=== PATIENT | female | born 1975 | race African-American/Black ===

== ENCOUNTER 2020-11-14 19:07 | Emergency (ER) | payer SELFPAY ==
[~2020-11-14] VITALS: Ht 157.5 cm; Wt 109.0 kg
[2020-11-14 20:41] VITALS: BP 131/75
[2020-11-14] MEDS ORDERED: CETI10CA2 MT (21:08)
[2020-11-14] MEDS ORDERED: DIPHENHYDRAMINE 25MG CAPSULE PO ONE (21:15)
[2020-11-14] MEDS ORDERED: CETIRIZINE 10MG TABLET PO SCH (21:15)
== END 2020-11-14 21:56 | disposition home or self-care (01) ==
LOC: ER 19:07
DX: J30.9 Allergic rhinitis, unspecified (principal)
CPT/HCPCS: 99283; Q0163

== ENCOUNTER 2021-05-24 21:34 | Emergency (ER) | payer MEDICAID, OTHER ==
[~2021-05-24] VITALS: Ht 160 cm; Wt 118.5 kg
[~2021-05-24 21:34] MED LIST: CETI10CA2 MT
[2021-05-24 23:44] LABS: CHLORIDE 106 mEq/L (98-107)
[2021-05-24 23:47] LABS: BASOPHILS % 0.4 % (0.0-2.0); EOSINOPHILS % 1.1 % (0.0-5.0); HEMATOCRIT. 35.5 % (36.0-48.0); LYMPHOCYTES % 14.6 % (20.0-50.0); MEAN CORPUSCULAR HEMOGLOBIN 27.8 pg (28.0-32.0); MEAN CORPUSCULAR VOLUME 81.9 fL (81.0-99.0); MEAN PLATELET VOLUME 8.2 fl (7.4-10.4); MONOCYTES % 7.4 % (2.0-8.0); NEUTROPHILS % 76.5 % (40.0-76.0); PLATELET 330 x1000/uL (130-400); RED BLOOD CELL COUNT 4.33 mill/uL (4.2-5.4)
[2021-05-25 02:49] LABS: CLARITY URINE CLEAR (CLEAR); COLOR URINE YELLOW (YELLOW); KETONES URINE NEGATIVE (NEGATIVE); LEUKOCYTE ESTERASE URINE NEGATIVE (NEGATIVE); NITRITE URINE NEGATIVE (NEGATIVE); OCCULT BLOOD URINE 1+ (NEGATIVE); PROTEIN URINE NEGATIVE (NEGATIVE); SPECIFIC GRAVITY URINE 1.008 (1.005-1.030)
[2021-05-25] MEDS ORDERED: KETOROLAC 15MG/ML VIAL IV ONE (05:15)
[2021-05-25] MEDS ORDERED: AMOX-494 MT (05:18)
[2021-05-25 05:20] VITALS: BP 116/60
== END 2021-05-25 05:50 | disposition home or self-care (01) ==
LOC: ER 21:34
DX: J18.9 Pneumonia, unspecified organism (principal); Z20.822 Contact with and (suspected) exposure to COVID-19
CPT/HCPCS: 36415; 71045; 71275; 80048; 81003; 81025; 83605; 84484; 85025; 85379; 87426; 93005; 96374; 99285; J1885

== ENCOUNTER 2021-06-08 13:03 | Emergency (ER) | payer MEDICAID, OTHER ==
[~2021-06-08] VITALS: Ht 162.6 cm; Wt 113.0 kg
[~2021-06-08 13:03] MED LIST changes: +AMOX-494 MT
[2021-06-08] MEDS ORDERED: ALBU6.7H9 INH (14:17)
[2021-06-08 14:30] VITALS: BP 126/75
== END 2021-06-08 14:48 | disposition home or self-care (01) ==
LOC: ER 13:03
DX: R05.3 Chronic cough (principal); Z87.01 Personal history of pneumonia (recurrent); Z20.822 Contact with and (suspected) exposure to COVID-19; Z88.8 Allergy status to other drugs, medicaments and biological substances
CPT/HCPCS: 87426; 87804; 99283